=== PATIENT | male | born 1965 | race African-American/Black ===

== ENCOUNTER 2018-03-16 08:41 | Day surgery (SDC) | payer BC ==
[2018-03-16] MEDS ORDERED: LIDOCAINE VISCOUS 2% SOLN 15 ML UDC ONE (09:16)
[2018-03-16] MEDS ORDERED: NA CHLORIDE 0.9% 1,000 ML ONE ×2 (09:16→14:12)
[2018-03-16] MEDS ORDERED: NACL 0.9% IRR SOLN 4,000 ML IRR ONE (09:21)
[2018-03-16 10:09] LABS: Absolute Lymphocytes (CBC) 2.2 K/uL (0.7-4.9); Absolute Neutrophil 7.3 K/uL (1.8-8.0); Basophils % 0.4 % (0-1.3); Eosinophils % 0.7 % (0-4.4); Hematocrit 34.3 % (39.6-49.0); Lymphocytes % 20.7 % (15.3-44.8); MCH 31.1 pg (27.0-35.0); MCV 89.6 fL (80-100); MPV 8.3 fL (7.6-11.3); Monocytes % 9.3 % (3.3-12.3); RBC Red Blood Cell Count 3.83 M/uL (4.33-5.43)
[2018-03-16 10:10] LABS: Protime INR 1.13
[2018-03-16 10:21] LABS: Albumin 3.8 g/dL (3.4-5.0); Bilirubin Total 0.7 mg/dL (0.2-1.0); Potassium 3.7 mmol/L (3.5-5.1)
[2018-03-16 11:28] LABS: Urine Appearance TURBID; Urine Blood 3+ (NEG); Urine Color RED; Urine Glucose NEGATIVE (NEG); Urine Protein 2+ (NEG); Urine Specific Gravity <=1.005 (1.005-1.030); Urine Urobilinogen 0.2 mg/dL (0.2-1.0); Urine pH 5.5 (5.0-7.0)
[2018-03-16 11:31] LABS: Urine Bilirubin NEGATIVE (NEG)
[2018-03-16 11:32] LABS: Urine Microscopic Reflex ORDER UMIC
[2018-03-16 11:34] LABS: Urine Bacteria 20-50 /HPF (NONE SEEN); Urine Culture Reflex Order REFLEXED; Urine RBC TNTC /HPF (NONE SEEN)
--- NOTE | 2018-03-16 11:44 | EDPHYS ---
Physician Documentation [facility] Name: Didier Triplett Age: 52 yrs Sex: Male : 1965 Arrival Date: 03/16/2018 Time: 08:44 Bed 7 Private MD: Mica Ta, A ED Physician Chino Pérez HPI: 03/16 09:06 This 52 yrs old Black Male presents to ER via Ambulatory with complaints of Penile jmm bleeding. 09:06 The patient presents with bleeding. Onset: The symptoms/episode began/occurred jmm gradually, 2 week(s) ago. Associated signs and symptoms: Pertinent negatives: fever. Patient complains of bleeding beginning after a turp procedure 2 weeks ago. Patient states that last night bleeding worsened. . Historical: - Allergies: 08:52 No Known Allergies; sg - PSHx: 08:53 Cysto TURP; sg - Immunization history:: Adult Immunizations up to date. - Social history:: Smoking status: Patient/guardian denies using tobacco. - Ebola Screening: : Patient negative for fever greater than or equal to 101.5 degrees Fahrenheit, and additional compatible Ebola Virus Disease symptoms Patient denies exposure to infectious person Patient denies travel to an Ebola-affected area in the 21 days before illness onset No symptoms or risks identified at this time. ROS: 09:06 Constitutional: Negative for fever, chills, and weight loss, Cardiovascular: Negative jmm for chest pain, palpitations, and edema, Respiratory: Negative for shortness of breath, cough, wheezing, and pleuritic chest pain, Abdomen/GI: Negative for abdominal pain, nausea, vomiting, diarrhea, and constipation, Back: Negative for injury and pain. 09:06 MS/Extremity: Negative for injury and deformity, Skin: Negative for injury, rash, and discoloration, Neuro: Negative for headache, weakness, numbness, tingling, and seizure. 09:06 : Positive for hematuria. 09:06 All other systems are negative. Exam: 09:06 Head/Face: atraumatic. Cardiovascular: Regular rate and rhythm. No gallops, murmurs, jmm or rubs. Full/Equal distal pulses. Respiratory: Lungs have equal breath sounds bilaterally, clear to auscultation. No rales, rhonchi or wheezes noted. No increased work of breathing, no retractions or nasal flaring. Abdomen/GI: Soft, non-tender, with normal bowel sounds. No distension or tympany. No guarding or rebound. No evidence of tenderness throughout. 09:06 Constitutional: The patient appears in no acute distress, alert, awake. 09:06 : bleeding noted from the urethra. 09:06 Skin: Appearance: Color: normal in color. 09:06 Neuro: Orientation: is normal, Mentation: is normal, Memory: is normal, Gait: is steady. Vital Signs: 08:48 Pulse 122; Resp 17; Temp 97.6; Pulse Ox 98% on R/A; Pain 10/10; sg 08:48 BP 113 / 87; ss 09:45 BP 118 / 95; Pulse 106; Resp 18; Pulse Ox 98% on R/A; dh3 10:51 BP 118 / 85; Pulse 90; Resp 18; Pulse Ox 100% on R/A; sv 11:40 BP 117 / 83; Pulse 92; Resp 18; Pulse Ox 100% ; sv 12:15 BP 115 / 85; Pulse 91; Resp 16; Pulse Ox 100% ; dh3 13:05 BP 118 / 81; Pulse 94; Resp 17; Pulse Ox 100% on R/A; dh3 13:53 BP 118 / 84; Pulse 99; Resp 18; Pulse Ox 99% ; sv MDM: 09:00 Patient medically screened. [facility] 11:13 Data reviewed: vital signs, nurses notes. Physician consultation: Mica Ta MD. [facility] 11:51 Counseling: I had a detailed discussion with the patient and/or guardian regarding: the [facility] historical points, exam findings, and any diagnostic results supporting the discharge/admit diagnosis, lab results, radiology results, the need for outpatient follow up, to return to the emergency department if symptoms worsen or persist or if there are any questions or concerns that arise at home. Response to treatment: the patient's symptoms have markedly improved after treatment, decreased bleeding appreciated. Physician consultation: After review US imaging, Dr. Ta advised to discharge the patient with leg bag, Macrodantin, oxy butyrin. . 03/16 09:01 Order name: CBC with Diff; Complete Time: 10:15 [facility] 03/16 09:01 Order name: CMP; Complete Time: 10:22 [facility] 03/16 09: Order name: Type And Screen; Complete Time: 10:51 [facility] 03/16 09:01 Order name: PT-INR; Complete Time: 10:15 [facility] 03/16 11:08 Order name: UA; Complete Time: 11:42 ag 03/16 11:11 Order name: Urinary Bladder; Complete Time: 11:50 [facility] 03/16 11:34 Order name: Urine Microscopic Only [facility] 03/16 11:36 Order name: Urine Culture [facility] 03/16 13:57 Order name: ABO/RH no charge; Complete Time: 14:04 [facility] 03/16 09:01 Order name: Liz-Three way; Complete Time: 09:53 [facility] 03/16 09:01 Order name: Bladder Irrigation; Complete Time: 10:00 [facility] 03/16 13:23 Order name: NPO; Complete Time: 13:27 EDMS Administered Medications: 09:50 Drug: NS 0.9% 1000 ml Route: IV; Rate: 1 bolus; Site: right antecubital; sv 11:00 Follow up: Response: No adverse reaction; IV Status: Completed infusion; IV Intake: sv 1000ml 13:11 CANCELLED (Duplicate Order): Rocephin - (cefTRIAXone) 1 grams IVPB once over 30 mins; sv (mix in 50 mL NS) 13:12 Drug: Rocephin 1 grams Route: IV; Rate: calculated rate; Site: right antecubital; sv 13:17 Follow up: Response: No adverse reaction; IV Status: Completed infusion; IV Intake: 10mlsv 13:27 CANCELLED (per Javier NESBITT): Macrobid 100 mg PO once; administer with food sv Disposition: 18:36 Co-signature as Attending Physician, Chino Pérez MD. rn Disposition: 03/16/18 13:13 Hospitalization ordered by Mica Ta for Observation. Preliminary diagnosis is Hematuria. - Bed requested for Operating Room. - Status is Observation. sv - Condition is Stable. - Problem is new. - Symptoms have worsened. UTI on Admission? Yes Signatures: Dispatcher [employer] [facility] Natalie Hernandez RN RN sv Gay, Steven, RN RN sg Mickail, Joel, PA PA jmm Nieto, Roman, MD MD academic intern: (The following items were deleted from the chart) 11:11 11:08 Abdomen Limited+US.RAD.BRZ ordered. [facility] EDMS 11:36 10:36 UA MICROSCOPIC+U.LAB.BRZ ordered. [facility] EDMS 11:51 11:43 Hospitalization Ordered by Mica Ta MD for Observation. Preliminary [facility] diagnosis is Hematuria. Bed requested for Operating Room. Status is Observation. Condition is Stable. Problem is new. Symptoms are unchanged. UTI on Admission? Yes. [facility] 12:48 11:58 03/16/2018 11:58 Discharged to Home. Impression: Hematuria. Condition is Stable. [facility] Forms are Medication Reconciliation Form, Thank You Letter, Antibiotic Education, Prescription Opioid Use. Follow up: Mica Ta; When: 2 - 3 days; Reason: Continuance of care. [facility] 13:11 12:48 Rocephin - (cefTRIAXone) 1 grams IVPB once over 30 mins; (mix in 50 mL NS) sv ordered. jmm 13:27 12:23 Macrobid 100 mg PO once; administer with food ordered. [facility] sv 13:27 13:27 Macrobid 100 mg PO once; administer with food ordered. sv sv 14:08 13:13 Hospitalization Ordered by Mica Ta MD for Observation. Preliminary sv diagnosis is Hematuria. Bed requested for Operating Room. Status is Observation. Condition is Stable. Problem is new. Symptoms have worsened. UTI on Admission? Yes. cassandra
--- NOTE | 2018-03-16 11:44 | ER ---
Nurse's Notes [facility] Name: Didier Triplett Age: 52 yrs Sex: Male : 1965 Arrival Date: 03/16/2018 Time: 08:44 Bed 7 Private MD: Mica Ta A Diagnosis: Hematuria Presentation: 03/16 08:46 Presenting complaint: Patient states: performed a TURP on pt about 2 weeks sg ago, pt reports extreme pain and passing large bloodclots from his penis with urination at first, but now its just bleeding from the penis. Transition of care: patient was not received from another setting of care. Onset of symptoms was March 16, 2018. Risk Assessment: Do you want to hurt yourself or someone else? Patient reports no desire to harm self or others. Initial Sepsis Screen: Does the patient meet any 2 criteria? HR > 90 bpm. Does the patient have a suspected source of infection? No. Patient's initial sepsis screen is negative. Care prior to arrival: None. 08:46 Method Of Arrival: Ambulatory sg 08:46 Acuity: MARCI 3 sg Triage Assessment: 08:46 General: Appears in no apparent distress. uncomfortable, well groomed, well developed, sg well nourished, Behavior is calm, cooperative, appropriate for age. Pain: Complains of pain in groin and suprapubic area Quality of pain is described as pressure, sharp. : Reports pain in suprapubic area passing large blood clots through urethra during urination. Historical: - Allergies: 08:52 No Known Allergies; sg - PSHx: 08:53 Cysto TURP; sg - Immunization history:: Adult Immunizations up to date. - Social history:: Smoking status: Patient/guardian denies using tobacco. - Ebola Screening: : Patient negative for fever greater than or equal to 101.5 degrees Fahrenheit, and additional compatible Ebola Virus Disease symptoms Patient denies exposure to infectious person Patient denies travel to an Ebola-affected area in the 21 days before illness onset No symptoms or risks identified at this time. Screenin:01 Abuse screen: Denies threats or abuse. Denies injuries from another. Nutritional ss screening: No deficits noted. Tuberculosis screening: Never had TB. 09:30 Fall Risk None identified. sv Assessment: 09:30 General: Appears in no apparent distress. uncomfortable, Behavior is calm, cooperative, sv appropriate for age. General: Denies fall or any other injury. Pain: Complains of pain in pelvis Pain currently is 10 out of 10 on a pain scale. Pain began this morning Is continuous. Neuro: Level of Consciousness is awake, alert, obeys commands, Oriented to person, place, time, situation, Moves all extremities. Full function Speech is normal. Respiratory: Respiratory effort is even, unlabored, Respiratory pattern is regular, symmetrical. GI: Reports constipation. : Reports discharge, bloody, with clots since this morning. Derm: Skin is normal. 09:58 Reassessment: Dick clamped. sv 10:15 Reassessment: Dick unclamped.Bladder irrigation started. sv 10:25 Reassessment: Patient appears in no apparent distress at this time. Patient and/or sv family updated on plan of care and expected duration. Pain level reassessed. Patient is alert, oriented x 3, equal unlabored respirations, skin warm/dry/pink. Family at the bedside. 11:14 Reassessment: Dick clamped to get ready for the US. sv 11:18 Reassessment: Dr Ta at the bedside. sv 11:33 Reassessment: Dick unclamped after US done. sv 12:20 Reassessment: Patient appears in no apparent distress at this time. Patient and/or sv family updated on plan of care and expected duration. Pain level reassessed. Patient is alert, oriented x 3, equal unlabored respirations, skin warm/dry/pink. Vital Signs: 08:48 Pulse 122; Resp 17; Temp 97.6; Pulse Ox 98% on R/A; Pain 10/10; sg 08:48 BP 113 / 87; ss 09:45 BP 118 / 95; Pulse 106; Resp 18; Pulse Ox 98% on R/A; dh3 10:51 BP 118 / 85; Pulse 90; Resp 18; Pulse Ox 100% on R/A; sv 11:40 BP 117 / 83; Pulse 92; Resp 18; Pulse Ox 100% ; sv 12:15 BP 115 / 85; Pulse 91; Resp 16; Pulse Ox 100% ; dh3 13:05 BP 118 / 81; Pulse 94; Resp 17; Pulse Ox 100% on R/A; dh3 13:53 BP 118 / 84; Pulse 99; Resp 18; Pulse Ox 99% ; sv ED Course: 08:44 Patient arrived in ED. sb2 08:44 Mica Ta MD is Private Physician. sb2 08:46 Arm band placed on. sg 08:48 Triage completed. sg 08:49 Javier Moore PA is PHCP. [facility] 08:49 Chino Pérez MD is Attending Physician. jmm 09:12 Natalie Hernandez, DARRELL is Primary Nurse. sv 09:30 Patient has correct armband on for positive identification. Placed in gown. Bed in low sv position. Call light in reach. Side rails up X 1. Pulse ox on. NIBP on. Door closed. Head of bed elevated. 09:30 Missed attempt(s): 20 gauge in right forearm. Bleeding controlled, band aid applied, sv catheter tip intact. 09:34 Inserted saline lock: 22 gauge in left antecubital area, using aseptic technique. Blood ss collected. 09:57 3-way catheter inserted, using sterile technique, 24 Fr. Returned bloody urine. sv 11:31 Note: U/S AT BEDSIDE. aa4 11:34 Ultrasound completed. aa4 11:36 Urinary Bladder In Process Unspecified. EDMS 11:42 No provider procedures requiring assistance completed. sv 11:43 Mica Ta MD is Hospitalizing Provider. jmm 11:57 Mica Ta MD is Referral Physician. jmm 13:12 Mica Ta MD is Hospitalizing Provider. jmm 14:07 Patient admitted, IV remains in place. intact. sv Administered Medications: 09:50 Drug: NS 0.9% 1000 ml Route: IV; Rate: 1 bolus; Site: right antecubital; sv 11:00 Follow up: Response: No adverse reaction; IV Status: Completed infusion; IV Intake: sv 1000ml 13:11 CANCELLED (Duplicate Order): Rocephin - (cefTRIAXone) 1 grams IVPB once over 30 mins; sv (mix in 50 mL NS) 13:12 Drug: Rocephin 1 grams Route: IV; Rate: calculated rate; Site: right antecubital; sv 13:17 Follow up: Response: No adverse reaction; IV Status: Completed infusion; IV Intake: 10mlsv 13:27 CANCELLED (per Javier NESBITT): Macrobid 100 mg PO once; administer with food sv Intake: 11:00 IV: 1000ml; Total: 1000ml. sv 11:15 Tubes: 2000ml (); Total: 3000ml. sv 11:51 Tubes: 2000ml (); Total: 5000ml. sv 12:30 Tubes: 2000ml (); Total: 7000ml. sv 13:17 IV: 10ml; Total: 7010ml. sv 11:15 dick irrigation sv 11:51 dick irrigation sv 12:30 dick irrigation sv Output: 10:19 Urine: 1050ml (Dick); Total: 1050ml. sv 11:15 Urine: 1945ml; Total: 2995ml. sv 11:51 Urine: 2225ml (Dick); Total: 5220ml. sv 12:30 Urine: 2750ml (Dick); Total: 7970ml. sv 14:07 Urine: 300ml (Dick); Total: 8270ml. sv 11:15 dick irrigation sv 11:51 dick irrigation sv 12:30 dick irrigation sv Outcome: 11:43 Decision to Hospitalize by Provider. [facility] 11:58 Discharge ordered by MD. [facility] 13:13 Decision to Hospitalize by Provider. [facility] 14:07 Admitted to OR accompanied by nurse, family with patient, via stretcher, with chart, sv Report called to Natalie Moore RN 14:07 Condition: stable 14:07 Instructed on the need for admit. 14:08 Patient left the ED. sv Signatures: Dispatcher [employer] Natalie Bell RN RN sv Gay, Steven RN Javier Farris PA PA jmm Frazier, Amanda aa4 Nani Guerrier RN RN ss Herrera, Deanna 3 Nai Don sb2
--- NOTE | 2018-03-16 11:49 | RAD REPORT ---
EXAM DESCRIPTION: US - Urinary Bladder - 03/16/2018 11:38 am CLINICAL HISTORY: Hematuria FINDINGS: A Liz catheter is present within the bladder. A 5.9 centimeter echogenic mass is seen. IMPRESSION: 5.9 centimeter echogenic mass within the bladder probably representing blood. Follow-up ultrasound is recommended to assess resolution and exclude an underlying mass
[2018-03-16] MEDS ORDERED: NACL 0.9% IRR SOLN 2,000 ML IRR ONE (11:50)
[2018-03-16] MEDS ORDERED: CEFTRIAXONE/SWI 1gm 1 GM/10 ML SYR ONE (13:09)
[2018-03-16] MEDS ORDERED: ACETAMINOPHEN 500 MG TAB PO PRN (13:21)
[2018-03-16] MEDS ORDERED: HYDROCODONE/APAP 5/325 MG TAB PO PRN (13:21)
[2018-03-16] MEDS ORDERED: ONDANSETRON 4 MG/2 ML VIAL IV PRN (13:21)
[2018-03-16] MEDS ORDERED: PROPOFOL 200 MG/20 ML VIAL IV ONE (14:19)
[2018-03-16] MEDS ORDERED: FENTANYL CITR 100 MCG/2 ML ONE ×3 (14:20→15:11)
[2018-03-16] MEDS ORDERED: ONDANSETRON HCL 40 MG/20 ML VIAL ONE (14:40)
[2018-03-16] MEDS ORDERED: KETOROLAC 30 MG/ML INJ ONE (14:40)
[2018-03-16] MEDS ORDERED: DEXAMETHASONE 10 MG/ML VIAL ONE (14:40)
[2018-03-16] MEDS ORDERED: MEPERIDINE HCL 25 MG/0.5 ML ONE (15:57)
[2018-03-16] MEDS ORDERED: OXYBUTYNIN CHLORIDE 5 MG TAB ONE (16:38)
[2018-03-16] MEDS ORDERED: TRAMADOL HCL 50 MG TAB ONE (16:39)
== END 2018-03-16 17:50 | disposition home or self-care (01) ==
LOC: ER 08:41 → UNDOADMOB 13:20 → ERHOLD 13:20 → DS 14:06
PROVIDERS: ATTEND Urology
PROC: 0VB08ZZ Excision of Prostate, Via Natural or Artificial Opening Endoscopic (ICD-10-PCS; principal; 2018-03-16 14:30)
DX: N40.1 Benign prostatic hyperplasia with lower urinary tract symptoms (principal); N41.0 Acute prostatitis; E11.9 Type 2 diabetes mellitus without complications; Z79.84 Long term (current) use of oral hypoglycemic drugs; I10 Essential (primary) hypertension; E78.00 Pure hypercholesterolemia, unspecified; R31.0 Gross hematuria; R39.12 Poor urinary stream
CPT/HCPCS: 36415; 76857; 80053; 81003; 81015; 82962; 85025; 85610; 86850; 86900; 86901; 87077; 87086; 87088; 87186; 88305; 96361; 96374; 99285; J0696; J1100; J2175; J2405; J3010; J7030

== ENCOUNTER 2022-05-25 08:12 | Day surgery (SDC) | payer BC ==
[2022-05-20 16:01] LABS: Absolute Lymphocytes (CBC) 2.4 K/uL (0.7-4.9); Hematocrit 39.1 % (39.6-49.0); MCV 88.6 fL (80-100); MPV 8.3 fL (7.6-11.3); RBC Red Blood Cell Count 4.42 M/uL (4.33-5.43)
--- NOTE | 2022-05-20 16:01 | RAD REPORT ---
EXAM DESCRIPTION: Robbin Cerda (2 Views)05/20/2022 3:44 pm CLINICAL HISTORY: Hypertension/preop COMPARISON: 2018 FINDINGS: The lungs appear clear of acute infiltrate. The heart is normal size IMPRESSION: No acute abnormalities displayed
[2022-05-20 16:02] LABS: Protime INR 1.04
[2022-05-20 16:11] LABS: SARS-CoV-2 Antigen Rapid Res Negative (Negative)
[2022-05-20 16:24] LABS: Potassium 3.8 mmol/L (3.5-5.1)
--- NOTE | 2022-05-22 15:23 | EKG ---
Test Date: 2022-05-20 Test Time: 15:24:40 Candy Wrapping Machine Operator: IMMANUEL MEASUREMENT RESULTS: Intervals: Rate: 93 [place]: 154 QRSD: 88 QT: 344 QTc: 427 [place]: P: 67 AZ: 154 QRS: 40 T: 24 INTERPRETIVE STATEMENTS: Normal sinus rhythm Nonspecific ST and T wave abnormality Abnormal ECG Compared to ECG 02/24/2018 08:44:35 ST (T wave) deviation now present Electronically Signed On 05-22-22 15:20:07 CDT by Antwan Bravo
[~2022-05-25 08:12] MED LIST: AMPICILLIN SODIUM 2 GM in NA CHLORIDE 0.9% 100 ML IVPB ONE; Gentamicin Inj 160 MG in NA CHLORIDE 0.9% 100 ML IV ONE
[2022-05-25] MEDS ORDERED: NA CHLORIDE 0.9% 1,000 ML ONE ×2 (08:26→12:48)
[2022-05-25 08:38] VITALS: O2SAT 99
[2022-05-25] MEDS ORDERED: FENTANYL CITR 100 MCG/2 ML ONE (09:23)
[2022-05-25] MEDS ORDERED: propofoL 200 MG/20 ML VIAL IV ONE (09:23)
[2022-05-25] MEDS ORDERED: MIDAZOLAM HCL 2 MG/2 ML INJ ONE (09:23)
[2022-05-25] MEDS ORDERED: KETOROLAC 30 MG/ML INJ ONE (09:24)
[2022-05-25] MEDS ORDERED: ONDANSETRON 4 MG/2 ML VIAL ONE (09:24)
[2022-05-25] MEDS ORDERED: dexAMETHasone 10 MG/ML VIAL ONE (09:24)
[2022-05-25] MEDS ORDERED: LIDOCAINE 1% MPF 5 ML VIAL ONE (09:24)
[2022-05-25] MEDS ORDERED: LABETALOL 20 MG/4ML SYRINGE IV ONE (11:30)
[2022-05-25] MEDS ORDERED: CODEINE 30MG/APAP 300MG TAB PO PRN (13:23)
[2022-05-25] MEDS ORDERED: PHENAZOPYRIDINE 100MG TAB PO ONE ×2 (13:23→14:29)
[2022-05-25 14:26] VITALS: BP 115/76; TEMP 97
[2022-05-25] MEDS ORDERED: CODEINE 30MG/APAP 300MG TAB ONE (14:50)
--- NOTE | 2022-05-25 14:50 | OP ---
Surgeon: JERE PARKER Preoperative Diagnoses: 1.Benign prostatic hypertrophy with lower urinary tract obstruction and symptoms. 2.Posterior urethral false passage. Postoperative Diagnoses: 1.Benign prostatic hypertrophy with lower urinary tract obstruction and symptoms. 2.Posterior urethral false passage. Principle Procedures: Bipolar transurethral resection of the prostate, extensive. Indication For Procedure: Mr. Triplett presented to the Urology Clinic with intermittent and recurren t gross hematuria along with moderate LUTS due to BPH. He was evaluated and found to have a very sig nificant posterior urethral false passage with the true lumen existing within a very long prostatic f tien superiorly. As a result, because of his obstruction and the ongoing bleeding which was coming f rom very edematous appearing prostatic tissue and clear inflammation there, I recommended surgical co rrection of the abnormality to resolve future bleeding. Procedure In Detail: The patient was consented in the preoperative holding area before being transfe rred to operative suite where general anesthesia was induced. He was given ampicillin 2 g and gentam icin 2-3 mg/kg IV antimicrobial prophylaxis and pneumo boots were provided for DVT prophylaxis. He w as placed in the lithotomy position, padded and secured to the table appropriately. His genitalia we re prepped using Hibiclens and he was draped in standard fashion. The case was begun using urethral sounds to dilate the meatus and fossa navicularis to 30-Armenian. I then was able to pass the 26-Frenc h resectoscope using a visual obturator via the urethra and into his bladder with some difficulty chioma igating beyond the posterior false passage and beyond a very severely elevated bladder neck finding t he true lumen into his bladder very superiorly within the prostatic fossa. The prostatic urethral le ngth was approximately 5 cm, and while there was no intravesical projection of any tissue, there was still significant lateral lobar hypertrophy along with the elevated median bar and false passage. As a result, I began resection taking down the adenomatous and edematous tissue at the bladder neck rachel t was likely the source of bleeding and continued the resection of the elevated median bar down to th e level of the verumontanum where I joined it with the previous posterior false passage that was pres ent. This then created a nice and smooth channel from the verumontanum all the way into his bladder. I then continued the resection into the left lateral lobe starting at the bladder neck, proceeding anteriorly, and then resecting the midzone of the prostate before arriving at the apical tissues. I then turned my attention to the right side where again began resection at the bladder neck and extend ed anteriorly before going to the mid region of the prostate. I then began resection of the apical t issues taking care to avoid injury to the striated sphincter by remaining at the level of the verumon tanum and resecting any overlapping tissue at that location. Once the lobes were no longer kissing, I then continued to resect additional tissue with his bladder decompressed and additional adenoma did reveal itself. After approximately 2 hours of resection, a nice trough had been created from the ve rumontanum into the bladder with no significant obstruction remnant. Ellik evacuation was used at mu ltiple points along the resection to remove an extensive quantity of prostate chips as well as any bl ood or clots. A careful search for bleeding was then undertaken and extensive fulguration was perfor med on multiple occasions in order to achieve complete hemostasis. Once hemostasis had been achieved , I then surveyed cystoscopically the bladder to confirm absence of bladder injury or injury to the u reteral orifices. When no injury was noted, I then again with the bladder decompressed and only a tr ickle of fluid and fulgurated the prostatic urethral mucosal junction at the bladder neck around circ umferentially to ensure no significant postoperative gross hematuria requiring prolonged CBI. I then backed the scope to the verumontanum and with the bladder decompressed and no fluid in flow observed for any sign of significant bleeding of venous nature and certainly no arterial bleeding was noted. When no significant bleeding was noted and any trickle of blood was fulgurated from any capillaries present, I then refilled his bladder with fluid and removed the resectoscope after ensuring all prost ate chips were out. I then passed a 24-Armenian 3-way Liz catheter into his bladder with ease and pl aced approximately 45 cc of sterile water in the balloon. The catheter was placed to moderate tracti on, and slow drip CBI and the efflux was completely clear. The patient was then taken out of the lit hotomy position, transferred to a stretcher, and then transferred to the recovery room in good condit ion. Complications: None. Discharge Disposition: He should follow up in the Urology Clinic on Tuesday for a voiding trial and w as discharged with a prescription for Bactrim for the next 5 days along with Tylenol with Codeine for pain management. Subsequent followup may be established in 3 months, but the patient will be inform ed that should he have any issues in the interim or bothersome LUTS, he should let me know and we wou ld see him sooner. ANA Voice ID: [id number] Report ID: [id number]
== END 2022-05-25 14:49 | disposition home or self-care (01) ==
LOC: OR 08:12
PROVIDERS: ATTEND Urology
PROC: 0VT08ZZ Resection of Prostate, Via Natural or Artificial Opening Endoscopic (ICD-10-PCS; principal; 2022-05-25 10:30)
DX: N40.1 Benign prostatic hyperplasia with lower urinary tract symptoms (principal); N36.5 Urethral false passage; Z20.822 Contact with and (suspected) exposure to COVID-19
CPT/HCPCS: 93005; 87088; 85025; 87086; 80048; 36415; 85610; 82947; 88305; 71046; 87811; 52601; J2704; J1580; J2250; J3010; J1100; J7030 ×2; J2405; J0290

== ENCOUNTER 2024-11-14 23:19 | Emergency (ER) | payer BC, SELFPAY ==
[2024-11-14] MEDS ORDERED: FLUORESCEIN SODIUM 1 MG/WRAP ONE (23:37)
[2024-11-14] MEDS ORDERED: TETRACAINE HCL 0.5% 4ML OPTH ONE (23:37)
[2024-11-15 00:46] LABS: Absolute Eosinophils 0.1 K/uL (0-0.5); Absolute Lymphocytes (CBC) 2.4 K/uL (0.7-4.9); Absolute Monocytes 0.6 K/uL (0.1-1.3); Absolute Neutrophil 4.6 K/uL (1.8-8.0); Basophils % 0.6 % (0-1.3); Eosinophils % 1.3 % (0-4.4); Hematocrit 39.9 % (39.6-49.0); Lymphocytes % 30.9 % (15.3-44.8); MCHC 35.2 g/dL (32.0-36.0); MCV 85.3 fL (80-100); Monocytes % 7.9 % (3.3-12.3); Neutrophils % 59.3 % (41.7-73.7); Nucleated Red Blood Cells % 0.1 % (0-0); Platelets 232 thou/uL (152-406); RBC Red Blood Cell Count 4.67 M/uL (4.33-5.43)
[2024-11-15 00:58] LABS: PT Prothrombin Time 11.3 SECONDS (9.4-12.5); Protime INR 1.08
[2024-11-15 01:12] LABS: ALT/SGPT 22 U/L (16-61); Albumin/Globulin Ratio 0.7 (1.1-1.8); Alkaline Phosphatase 130 U/L (45-117); Anion Gap 10.6 mEq/L (5.0-15.0); BUN Blood Urea Nitrogen 13 mg/dL (7-18); Bicarbonate 26 mEq/L (21-32); Bilirubin Direct 0.2 mg/dL (0-0.2); Bilirubin Indirect, Calculated 0.6 mg/dL (0.2-0.8); Bilirubin Total 0.8 mg/dL (0.2-1.0); Globulin 4.2 g/dL (2.3-3.5); Glomerular Filtration Rate 79 ml/min (=/>90); NT PRO-BNP 208 pg/mL (<125); Potassium 3.6 mEq/L (3.5-5.1); Protein, Total 7.2 g/dL (6.4-8.2); Sodium Level 131 mEq/L (136-145); Troponin High Sensitivity 34.2 pg/mL (<58.9)
[2024-11-15 01:16] LABS: AST/SGOT < 10 U/L (15-37); Glucose Level 535 mg/dL (74-106)
[2024-11-15] MEDS ORDERED: LOSARTAN POTASSIUM 50 MG TABLET ONE (01:17)
[2024-11-15] MEDS ORDERED: HYDRALAZINE HCL 25 MG TABLET ONE (01:17)
[2024-11-15] MEDS ORDERED: INSULIN REGULAR (HUMAN) 100 UNIT/ML ONE (01:41)
--- NOTE | 2024-11-15 03:02 | ER ---
Nurse's Notes [facility] Name: Didier Triplett Age: 59 yrs Sex: Male : 1965 Arrival Date: 11/14/2024 Time: 23:19 Bed 18 Private MD: Diagnosis: Type 2 diabetes mellitus with hyperglycemia;Essential hypertension, uncontrolled;Acute right corneal abrasion. ;Uncontrolled diabetes mellitus type II Presentation: 11/14 23:45 Chief complaint: Patient states: right eye bothering all day, 3 hours ago started vc1 feeling like something "dragging in there". Coronavirus screen: Client denies travel out of the [place] in the last 14 days. At this time, the client does not indicate any symptoms associated with coronavirus-19. Ebola Screen: Patient negative for fever greater than or equal to 101.5 degrees Fahrenheit, and additional compatible Ebola Virus Disease symptoms Patient denies exposure to infectious person. Patient denies travel to an Ebola-affected area in the 21 days before illness onset. No symptoms or risks identified at this time. Initial Sepsis Screen: Does the patient meet any 2 criteria? No. Patient's initial sepsis screen is negative. Does the patient have a suspected source of infection? No. Patient's initial sepsis screen is negative. Risk Assessment: Do you want to hurt yourself or someone else? Patient reports no desire to harm self or others. Onset of symptoms was November 14, 2024. Care prior to arrival: None. Activity prior to arrival: None. Mechanism of Injury: No Mechanism of Injury. 23:45 Method Of Arrival: Ambulatory vc1 23:45 Acuity: MARCI 3 vc1 Triage Assessment: 11/15 00:27 General: Appears in no apparent distress. uncomfortable, obese, Behavior is calm, vc1 cooperative, appropriate for age. Pain: Complains of pain in right eye Pain does not radiate. Pain currently is 7 out of 10 on a pain scale. Quality of pain is described as pressure, Also complains of photophobia. EENT: Reports blurred vision in right eye photophobia in right eye. Neuro: Level of Consciousness is awake, alert, obeys commands, Oriented to person, place, time, situation, Appropriate for age. Cardiovascular: Capillary refill < 3 seconds. Respiratory: Airway is patent Respiratory effort is even, unlabored, Respiratory pattern is regular, symmetrical. GI: No deficits noted. No signs and/or symptoms were reported involving the gastrointestinal system. : No deficits noted. No signs and/or symptoms were reported regarding the genitourinary system. Derm: Skin is intact, is healthy with good turgor, Skin is dry, Skin is normal, Skin temperature is warm. Musculoskeletal: Circulation, motion, and sensation intact. Range of motion: intact in all extremities. Historical: - Allergies: 11/14 23:48 No Known Allergies; vc1 - Home Meds: 23:48 Ozempic subcutaneous [Active]; vc1 - PMHx: 23:48 Hypertensive disorder; Diabetes mellitus; vc1 - PSHx: 23:48 None; vc1 - Immunization history:: Client reports having NOT received the Covid vaccine. - Infectious Disease History:: Denies. - Social history:: Smoking status: Patient denies any tobacco usage or history of. - Family history:: not pertinent. Screenin:[facility] ED Fall Risk Assessment (Adult) History of falling in the last 3 months, vc1 including since admission No falls in past 3 months (0 pts) Confusion or Disorientation No (0 pts) Intoxicated or Sedated No (0 pts) Impaired Gait No (0 pts) Mobility Assist Device Used No (0 pt) Altered Elimination No (0 pt) Score/Fall Risk Level 0 - 2 = Low Risk Oriented to surroundings, Maintained a safe environment, Educated pt \\T\\ family on fall prevention, incl call for assistance when getting out of bed. Abuse screen: Denies threats or abuse. Nutritional screening: No deficits noted. Tuberculosis screening: No symptoms or risk factors identified. Assessment: 11/15 00:00 General: Appears in no apparent distress. Behavior is calm, cooperative. Pain: ay Complains of pain in right eye. Neuro: Level of Consciousness is awake, alert, obeys commands, Oriented to person, place, time, situation, Speech is normal. Cardiovascular: Denies chest pain, nausea, vomiting, Capillary refill < 3 seconds. Respiratory: Airway is patent Respiratory effort is even, unlabored, Respiratory pattern is regular, symmetrical. GI: No signs and/or symptoms were reported involving the gastrointestinal system. : No signs and/or symptoms were reported regarding the genitourinary system. EENT: Reports blurred vision in right eye pain in right eye. Derm: No signs and/or symptoms reported regarding the dermatologic system. Vital Signs: 11/14 23:45 BP 204 / 114; Pulse 93; Resp 16; Temp 98.2; Pulse Ox 97% ; Weight 69.4 kg; Height 5 ft. vc1 8 in. ; Pain 7/10; 11/15 01:28 BP 193 / 108; Pulse 97; Resp 19; Pulse Ox 100% on R/A; ay 03:31 BP 165 / 95; Pulse 90; Resp 17; Pulse Ox 100% on R/A; ay 11/14 23:45 Body Mass Index 23.26 (69.40 kg, 172.72 cm) vc1 11/14 23:45 Pain Scale: Adult vc1 Padmini Coma Score: 00:00 Eye Response: spontaneous(4). Motor Response: obeys commands(6). Verbal Response: ay oriented(5). Total: 15. 20:55 Eye Response: spontaneous(4). Motor Response: obeys commands(6). Verbal Response: sp4 oriented(5). Total: 15. ED Course: 11/14 23:22 Patient arrived in ED. gm2 23:29 Rafa Samuel MD is Attending Physician. sp4 23:47 Triage completed. vc1 23:49 Arm band placed on right wrist. vc1 23:49 Patient has correct armband on for positive identification. Bed in low position. Call vc1 light in reach. Pulse ox on. NIBP on. 11/15 00:11 EKG done, by ED staff, reviewed by Rafa Samuel MD. oe 00:31 Inserted saline lock: 22 gauge in right forearm, using aseptic technique. Blood oe collected. Flushed with 10 mL NS. 00:32 XRAY Chest (1 view) In Process Unspecified. EDMS 00:33 Basic Metabolic Panel Sent. oe 00:33 CBC with Diff Sent. oe 00:33 LFT's Sent. oe 00:33 Magnesium Sent. oe 00:33 NT PRO-BNP Sent. oe 00:33 PT-INR Sent. oe 00:33 Troponin HS Sent. oe 01:14 Evelina Ha, RN is Primary Nurse. ay 03:01 Km Mendes DO is Referral Physician. sp4 03:31 IV discontinued, intact, bleeding controlled, No redness/swelling at site. Pressure ay dressing applied. Administered Medications: : Drug: Losartan PO 100 mg PO once Route: PO; ay 02:33 Follow up: Response: No adverse reaction ay 01:29 Drug: HydrALAZINE PO 50 mg PO once Route: PO; ay 02:33 Follow up: Response: No adverse reaction ay 01:31 Drug: Tetracaine Ophthalmic Drops 0.5 % 1 drops Ophthalmic once Route: Ophthalmic; ay Site: right eye; 02:33 Follow up: Response: No adverse reaction ay 01:58 Drug: Insulin Regular Human IVP 8 units IVP once {Co-Signature: danyel (Rukhsana Louise RN).} Route: IVP; Site: left forearm; 02:32 Follow up: Response: No adverse reaction ay Medication: 11/14 23:34 VIS not applicable for this client. vc1 Outcome: 11/15 03:02 Discharge ordered by . alana 03:31 Discharged to home ambulatory, ay 03:31 Condition: stable 03:31 Discharge instructions given to patient, Instructed on discharge instructions, follow up and referral plans. medication usage, Demonstrated understanding of instructions, follow-up care, medications, Prescriptions given X 3, 03:33 Patient left the ED. ay Signatures: Dispatcher [employer] EDMS Ryan Estrada Vanessa RN RN vc1 Rafa Samuel MD MD sp4 Rosemary Burkett gm2 Evelina Ha, Rukhsana Downey RN, RN
--- NOTE | 2024-11-15 03:02 | EDPHYS ---
Physician Documentation [facility] Name: Didier Triplett Age: 59 yrs Sex: Male : 1965 Arrival Date: 11/14/2024 Time: 23:19 Bed 18 Private MD: ED Physician Rafa aSmuel HPI: 11/14 23:29 This 59 yrs old Black Male presents to ER via Unassigned with complaints of Foreign sp4 Body In Eye. 11/15 01:59 59-year-old male presents with right eye pain and sensation of foreign body.. sp4 02:00 Patient has history of uncontrolled hypertension and uncontrolled diabetes.. sp4 Historical: - Allergies: 11/14 23:48 No Known Allergies; vc1 - Home Meds: 23:48 Ozempic subcutaneous [Active]; vc1 - PMHx: 23:48 Hypertensive disorder; Diabetes mellitus; vc1 - PSHx: 23:48 None; vc1 - Immunization history:: Client reports having NOT received the Covid vaccine. - Infectious Disease History:: Denies. - Social history:: Smoking status: Patient denies any tobacco usage or history of. - Family history:: not pertinent. ROS: 11/15 20:51 Constitutional: Negative for fever, chills, and weight loss, positive for right eye sp4 discomfort and sensation of foreign body All other systems are negative, Exam: 01:46 ECG was reviewed by the Attending Physician. EKG at 0002 normal sinus rhythm. sp4 20:55 Visual Acuity: I have reviewed the nursing documentation. Visual acuity is within sp4 normal limits. 20:55 Constitutional: This is a well developed, well nourished patient who is awake, alert, and in no acute distress. Head/Face: Normocephalic, atraumatic. Eyes: Pupils equal round and reactive to light, extra-ocular motions intact. Lids and lashes normal. Conjunctiva and sclera are not injected. Periorbital areas with no swelling, redness, or edema. Fluorescein exam reveals small corneal abrasion at 11 O'Clock right cornea ENT: Nares patent. No nasal discharge, no septal abnormalities noted. Tympanic membranes are normal and external auditory canals are clear. Oropharynx with no redness, swelling, or masses, exudates, or evidence of obstruction, uvula midline. Mucous membranes moist. Neck: Trachea midline, no thyromegaly or masses palpated, and no cervical lymphadenopathy. Supple, full range of motion without nuchal rigidity, or vertebral point tenderness. Chest/axilla: Normal chest wall appearance and motion. Nontender with no deformity. No lesions are appreciated. Cardiovascular: Regular rate and rhythm with a normal S1 and S2. No gallops, murmurs, or rubs. Normal PMI, no JVD. No pulse deficits. Respiratory: Lungs have equal breath sounds bilaterally, clear to auscultation and percussion. No rales, rhonchi or wheezes noted. No increased work of breathing, no retractions or nasal flaring. Abdomen/GI: Soft, with normal bowel sounds. No distension or tympany. No guarding or rebound. No evidence of tenderness throughout. Back: No spinal tenderness. No costovertebral tenderness. Skin: Warm, dry with normal turgor. Normal color with no rashes, no lesions, and no evidence of cellulitis. MS/ Extremity: Pulses equal, no cyanosis. Neurovascular intact. Full, normal range of motion. Neuro: Awake and alert, GCS 15, oriented to person, place, time, and situation. Cranial nerves II-XII grossly intact. Motor strength 5/5 in all extremities. Sensory grossly intact. Psych: Awake, alert, with orientation to person, place and time. Behavior, mood, and affect are within normal limits Vital Signs: 11/14 23:45 BP 204 / 114; Pulse 93; Resp 16; Temp 98.2; Pulse Ox 97% ; Weight 69.4 kg; Height 5 ft. vc1 8 in. ; Pain 7/10; 11/15 01:28 BP 193 / 108; Pulse 97; Resp 19; Pulse Ox 100% on R/A; ay 03:31 BP 165 / 95; Pulse 90; Resp 17; Pulse Ox 100% on R/A; ay 11/14 23:45 Body Mass Index 23.26 (69.40 kg, 172.72 cm) vc1 11/14 23:45 Pain Scale: Adult vc1 Padmini Coma Score: 00:00 Eye Response: spontaneous(4). Motor Response: obeys commands(6). Verbal Response: ay oriented(5). Total: 15. 20:55 Eye Response: spontaneous(4). Motor Response: obeys commands(6). Verbal Response: sp4 oriented(5). Total: 15. MDM: 01:53 ED course: EXAM: XR Chest, 1 View CLINICAL HISTORY: CHEST PAIN TECHNIQUE: Frontal view sp4 of the chest. COMPARISON: No relevant prior studies available. FINDINGS: Lungs: Unremarkable. No consolidation. Pleural space: Unremarkable. No pneumothorax. Heart: Unremarkable. No cardiomegaly. Mediastinum: Unremarkable. Normal mediastinal contour. Bones/joints: Unremarkable. No acute fracture. IMPRESSION: No acute disease.. 03:02 Medical Screening Exam initiated sp4 20:56 Differential diagnosis: Corneal abrasion of Corneal ulcer of Acute glaucoma in sp4 Ultraviolet keratitis in. Data reviewed: vital signs, nurses notes, old medical records, lab test result(s), EKG, radiologic studies. Consideration of Admission/Observation Escalation of care including admission/observation considered. ED course: . ED course: Patient primarily presents with moderate to severe elevation of blood pressure. Also signs of uncontrolled diabetes blood sugar over 500. Right eye exam reveals small right corneal abrasion without embedded foreign body. Patient has equal reactive pupils no signs of acute glaucoma. Patient has not been on his medications for the past 6 months. Patient was prescribed losartan also glipizide. Patient was referred to primary care clinic with Dr. Mendes . 11/14 23:46 Order name: Basic Metabolic Panel; Complete Time: 4 11/14 23:46 Order name: CBC with Diff; Complete Time: 4 11/14 23:46 Order name: LFT's; Complete Time: 4 11/14 23:46 Order name: Magnesium; Complete Time: sp4 11/14 23:46 Order name: NT PRO-BNP; Complete Time: : sp4 11/14 23:46 Order name: PT-INR; Complete Time: : sp4 11/14 23:46 Order name: Troponin HS; Complete Time: 4 11/15 03:01 Order name: Glucose, Ancillary Testing EDDE 11/14 23:46 Order name: XRAY Chest (1 view) 4 11/14 23:46 Order name: Cardiac monitoring; Complete Time: 01:30 4 11/14 23:46 Order name: EKG - Nurse/Tech; Complete Time: 00:11 sp4 11/14 23:46 Order name: IV Saline Lock; Complete Time: 00:33 sp4 11/14 23:46 Order name: Labs collected and sent; Complete Time: : sp4 11/14 23:46 Order name: O2 Per Protocol; Complete Time: : sp4 11/14 23:46 Order name: O2 Sat Monitoring; Complete Time: : sp4 11/14 23:46 Order name: Eye Tray; Complete Time: 23:50 sp4 11/14 23:46 Order name: Fluoresene Opth strip; Complete Time: 23:50 sp4 11/15 03:00 Order name: Accucheck Blood Glucose sp4 EC:02 Rate is 94 beats/min. Rhythm is regular, Normal Sinus Rhythm. QRS [place] is Normal. [place] sp4 interval is normal. QRS interval is normal. QT interval is normal. No Q waves. T waves are Normal. No ST changes noted. Clinical impression: No evidence of ischemia. Interpreted by me. Reviewed by me. Administered Medications: 01: Drug: Losartan PO 100 mg PO once Route: PO; ay 02:33 Follow up: Response: No adverse reaction ay 01:29 Drug: HydrALAZINE PO 50 mg PO once Route: PO; ay 02:33 Follow up: Response: No adverse reaction ay 01:31 Drug: Tetracaine Ophthalmic Drops 0.5 % 1 drops Ophthalmic once Route: Ophthalmic; ay Site: right eye; 02:33 Follow up: Response: No adverse reaction ay 01:58 Drug: Insulin Regular Human IVP 8 units IVP once {Co-Signature: [email or web address] (Rukhsana Louise RN).} Route: IVP; Site: left forearm; 02:32 Follow up: Response: No adverse reaction ay Disposition Summary: 11/15/24 03:02 Discharge Ordered Notes: Location: Home sp4 Problem: new sp4 Symptoms: have improved sp4 Condition: Stable sp4 Diagnosis - Type 2 diabetes mellitus with hyperglycemia sp4 - Essential hypertension, uncontrolled sp4 - Acute right corneal abrasion. sp4 - Uncontrolled diabetes mellitus type II sp4 Followup: sp4 - With: Km Mendes DO - When: 7 - 10 days - Reason: Recheck today's complaints Discharge Instructions: - Discharge Summary Sheet sp4 - Diabetes Mellitus and Nutrition, Adult sp4 Forms: - Patient Portal Instructions sp4 Prescriptions: - losartan 100 mg Oral tablet - take 1 tablet ORAL route every morning take daily; 90 tablet; Refills: 0, sp4 Product Selection Permitted - tobramycin 0.3 % Ophthalmic drops - instill 2 drop OPHTHALMIC route every 4 hours Two drops into Right eye every 4 sp4 hours while awake; 5 milliliter; Refills: 0, Product Selection Permitted - Glipizide 5 mg Oral tablet - take 1 tablet ORAL route every 12 hours before a meal; 60 tablet; Refills: 0, sp4 Product Selection Permitted Signatures: Dispatcher [employer] EDMS Malissa Trinh, RN RN vc1 Rafa Samuel MD MD sp4 Evelina Ha RN RN ay Langhorst, Amanda RN al5 Corrections: (The following items were deleted from the chart) 11/14 23:46 23:46 BASIC METABOLIC PANEL+C.LAB.BRZ ordered. EDMS EDMS 23:46 23:46 CBC+H.LAB.BRZ ordered. EDMS EDMS 23:46 23:46 HEPATIC FUNCTION+C.LAB.BRZ ordered. EDMS EDMS 23:46 23:46 MAGNESIUM+C.LAB.BRZ ordered. EDMS EDMS 23:46 23:46 PROBNP+C.LAB.BRZ ordered. EDMS EDMS 23:46 23:46 PROTIME (+INR)+COAG.LAB.BRZ ordered. EDMS EDMS 23:46 23:46 Troponin High Sensitivity+C.LAB.BRZ ordered. EDMS EDMS 23:46 23:46 Chest Single View+RAD.RAD.BRZ ordered. EDMS EDMS
--- NOTE | 2024-11-15 06:03 | RAD REPORT ---
EXAM: XR Chest, 1 View CLINICAL HISTORY: CHEST PAIN TECHNIQUE: Frontal view of the chest. COMPARISON: No relevant prior studies available. FINDINGS: Lungs: Unremarkable. No consolidation. Pleural space: Unremarkable. No pneumothorax. Heart: Unremarkable. No cardiomegaly. Mediastinum: Unremarkable. Normal mediastinal contour. Bones/joints: Unremarkable. No acute fracture. IMPRESSION: No acute disease. Electronically signed by: Joao Dacosta MD 11/15/2024 01:16 AM [facility] Due to temporary technical issues with the PACS/Medlio reporting system, reports are being kady d by the in-house radiologist without review as a courtesy to ensure prompt reporting the interpreting radiologist is fully responsible for the content of the report. Transcribed Date/Time: 11/15/2024 6:03 AM
[2024-11-16 11:52] VITALS: TEMP 98.2
[2024-11-16 11:53] VITALS: O2SAT 100
[2024-11-16 11:54] VITALS: BP 165/95
--- NOTE | 2024-11-19 12:18 | EKG ---
Test Date: 2024-11-15 Test Time: 00:02:38 Agricultural Consultant: IVONE MEASUREMENT RESULTS: Intervals: Rate: 94 ME: 174 QRSD: 86 QT: 364 QTc: 455 [place]: P: 61 ME: 174 QRS: 14 T: 47 INTERPRETIVE STATEMENTS: Normal sinus rhythm Possible Left atrial enlargement ST elevation, probably due to early repolarization Borderline ECG Compared to ECG 05/20/2022 15:24:40 Early repolarization now present ST (T wave) deviation still present Electronically Signed On 11-19-24 12:13:17 SAP SOLUTION MANAGER CONSULTANT by Larui Castillo
== END 2024-11-15 03:33 | disposition home or self-care (01) ==
LOC: ER 23:19
DX: S05.01XA Injury of conjunctiva and corneal abrasion without foreign body, right eye, initial encounter (principal); E11.65 Type 2 diabetes mellitus with hyperglycemia; I10 Essential (primary) hypertension
CPT/HCPCS: 36415; 71045; 80048; 80076; 82947; 83735; 83880; 84484; 85025; 85610; 93005; 96374; 99285